=== PATIENT | male | born 1990 | race Caucasian/White ===

== ENCOUNTER 2017-11-21 19:42 | Emergency (ER) | payer MEDICAID ==
[~2017-11-21] VITALS: Ht 188 cm; Wt 95.5 kg
[2017-11-21 21:57] VITALS: BP 145/79
== END 2017-11-21 22:05 | disposition home or self-care (01) ==
LOC: ER 19:42
DX: R55 Syncope and collapse (principal); Z60.2 Problems related to living alone; Z59.0 Homelessness; Z56.0 Unemployment, unspecified
CPT/HCPCS: 93005; 99283

== ENCOUNTER 2017-12-23 16:55 | Emergency (ER) | payer MEDICAID ==
[~2017-12-23] VITALS: Ht 182.9 cm; Wt 96.0 kg
[2017-12-23 19:12] LABS: BASOPHILS % (AUTO) 0.3 % (0-1); EOSINOPHILS # (AUTO) 0.1 X10'3 (0-0.9); EOSINOPHILS % (AUTO) 0.6 % (0-6); HEMOGLOBIN 14.6 g/dl (14.0-17.9); LYMPHOCYTES # (AUTO) 2.8 X10'3 (1.1-4.8); LYMPHOCYTES % (AUTO) 26.5 % (21-51); MEAN CORPUSCULAR HEMOGLOBIN 30.1 PG (27.0-31.0); MEAN CORPUSCULAR HGB CONC 34.1 % (33.0-36.5); MEAN CORPUSCULAR VOLUME 88.3 FL (78-98); MEAN PLATELET VOLUME 8.7 FL (7.4-10.4); MONOCYTES # (AUTO) 0.6 X10'3 (0-0.9); MONOCYTES % (AUTO) 6.1 % (2-12); NEUTROPHILS % (AUTO) 66.5 % (42-75); PLATELET COUNT 292 X10'3 (140-440); RED BLOOD COUNT 4.87 X10'6 (4.70-6.10); RED CELL DISTRIBUTION WIDTH 13.5 % (11.5-14.5); WHITE BLOOD COUNT 10.6 X10'3 (4.5-11.0)
[2017-12-23 19:25] LABS: URINE AMPHETAMINE SCREEN NEGATIVE (Neg); URINE BARBITUATE SCREEN NEGATIVE (Neg); URINE BENZODIAZEPINES SCREEN NEGATIVE (Neg); URINE CANNABINOID SCREEN NEGATIVE (Neg); URINE COCAINE SCREEN NEGATIVE (Neg); URINE METHADONE SCREEN NEGATIVE (Neg); URINE OPIATE SCREEN NEGATIVE (Neg); URINE PHENCYCLIDINE SCREEN NEGATIVE (Neg)
[2017-12-23 19:26] LABS: ALANINE AMINOTRANSFERASE 49 U/L (12-78); ALBUMIN 3.8 G/DL (3.4-5.0); ALBUMIN/GLOBULIN RATIO 1.2 (1.1-1.5); ALKALINE PHOSPHATASE 80 IU/L (46-116); ANION GAP 11 (8-16); ASPARTATE AMINO TRANSFERASE 17 U/L (10-37); BILIRUBIN,TOTAL 0.3 MG/DL (0.1-1.0); BLOOD UREA NITROGEN 10 MG/DL (7-18); BUN/CREATININE RATIO 9.6 (5.4-32.0); CALCIUM 8.4 MG/DL (8.5-10.1); CHLORIDE 104 MMOL/L (99-107); CREATININE 1.04 MG/DL (0.60-1.10); GLUCOSE 112 MG/DL (70-104); POTASSIUM 3.1 MMOL/L (3.5-5.1); SODIUM 140 MMOL/L (135-145); TOTAL CARBON DIOXIDE 25.4 MMOL/L (24-32); TOTAL PROTEIN 7.1 G/DL (6.4-8.2); eGFR 85 ML/MIN
[2017-12-23 19:29] LABS: ETHANOL < 0.010 GM/DL (0.0-0.010)
[2017-12-23] MEDS ORDERED: LORA-269 PO (20:46)
[2017-12-23] MEDS ORDERED: LURA20TA PO (20:46)
[2017-12-23] MEDS ORDERED: PRAZ1CAP5 PO (20:46)
[2017-12-24] MEDS ORDERED: LORazepam 1 MG tablet PO PRN
[2017-12-24] MEDS ORDERED: potassium Cl 20 mEq SR tablet PO ONE (00:17)
[2017-12-24] MEDS ORDERED: lurasidone 20mg tablet PO SCH (02:22)
[2017-12-24 05:30] VITALS: BP 102/56
[2017-12-24] MEDS ORDERED: prazosin 1mg capsule PO SCH (21:00)
== END 2017-12-24 12:30 ==
LOC: ER 16:56
DX: F32.9 Major depressive disorder, single episode, unspecified (principal); Z79.899 Other long term (current) drug therapy; Z56.0 Unemployment, unspecified; Z59.0 Homelessness; Z60.2 Problems related to living alone
CPT/HCPCS: 36415; 80053; 80305; 80320; 85025; 99285

== ENCOUNTER 2017-12-24 13:06 | Emergency (ER) | payer MEDICAID ==
[~2017-12-24] VITALS: Ht 182.9 cm; Wt 96.3 kg
[~2017-12-24 13:06] MED LIST: LORA-269 PO; LURA20TA PO; PRAZ1CAP5 PO
[2017-12-24 13:14] VITALS: BP 120/67
== END 2017-12-24 14:16 | disposition left against medical advice (07) ==
LOC: ER 13:07
DX: Z00.8 Encounter for other general examination (principal); Z53.21 Procedure and treatment not carried out due to patient leaving prior to being seen by health care provider